=== PATIENT | female | born 1995 | race Two or more races ===

== ENCOUNTER 2021-03-26 12:30 | Inpatient (IN) | payer OTHER ==
[~2021-03-26] VITALS: Ht 160 cm; Wt 56.2 kg
[2021-03-29] MEDS ORDERED: SIMVASTAT PO (14:40)
[2021-03-29] MEDS ORDERED: VITAMIN D PO (14:41)
[2021-04-01] MEDS ORDERED: VITAMIN D31250 MCG (09:53)
[2021-04-01] MEDS ORDERED: OPTIVE EYE DROP15 ML (09:53)
[2021-04-01] MEDS ORDERED: SIMVASTATIN10 MG (09:53)
== END 2021-04-03 11:45 | disposition home or self-care (01) | DRG 743 ==
LOC: SURH 03-29 12:30 → O/R 03-31 07:25 → OB/GYN 03-31 07:25 → SURH 03-31 10:30 → OB/GYN 03-31 15:57
PROVIDERS: ADMIT Specialist; ATTEND Specialist
PROC: 0UB00ZZ Excision of Right Ovary, Open Approach (ICD-10-PCS; principal; 2021-03-31 10:30)
DX: D27.0 Benign neoplasm of right ovary (principal)